=== PATIENT | male | born 1975 | race Caucasian/White ===

== ENCOUNTER 2018-03-02 16:42 | Emergency (ER) | payer SELFPAY ==
[~2018-03-02] VITALS: Ht 180.3 cm; Wt 82.0 kg
[2018-03-02 20:08] VITALS: BP 112/74
== END 2018-03-02 20:50 | disposition home or self-care (01) ==
LOC: ED 19:10 → EDBD 19:10 → ED 20:50
DX: F10.120 Alcohol abuse with intoxication, uncomplicated (principal)
CPT/HCPCS: 36415; 80307; 99283

== ENCOUNTER 2018-03-03 15:16 | Emergency (ER) | payer SELFPAY ==
[~2018-03-03] VITALS: Ht 182.9 cm; Wt 79.0 kg
[2018-03-03 20:04] VITALS: BP 102/71
== END 2018-03-03 20:17 | disposition home or self-care (01) ==
LOC: ED 16:34
DX: F10.120 Alcohol abuse with intoxication, uncomplicated (principal)
CPT/HCPCS: 99283

== ENCOUNTER 2018-03-04 11:59 | Emergency (ER) | payer SELFPAY ==
[~2018-03-04] VITALS: Ht 177.8 cm; Wt 80.0 kg
[2018-03-04 19:45] VITALS: BP 118/74
== END 2018-03-04 19:55 | disposition home or self-care (01) ==
LOC: ED 15:04
DX: F10.229 Alcohol dependence with intoxication, unspecified (principal); F17.210 Nicotine dependence, cigarettes, uncomplicated; Y90.9 Presence of alcohol in blood, level not specified
CPT/HCPCS: 99283

== ENCOUNTER 2018-07-01 20:36 | Emergency (ER) | payer SELFPAY ==
[~2018-07-01] VITALS: Ht 180.3 cm; Wt 81.0 kg
--- NOTE | 2018-07-01 20:54 | NUR ---
pt RESTING IN BED. UNABLE TO GET BREATHYLIZER ON PT. MACHINE FLASHES, E31 CODE. PT CALM AT THIS TIME. WILL CONTINUE TO MONITOR.
--- NOTE | 2018-07-01 21:13 | NUR ---
PT DESATING TO 82% ON RA. PT PLACE DON 3L O2 PER N/C . PT REPOSITIONED IN BED.
--- NOTE | 2018-07-01 22:36 | NUR ---
PT TRYING TO STAND UP TO VOID IN URINAL. PT SPILLING URINE ALL OVER FLOOR. PT ASSISTED WITH VOID IN URINAL. PT PLACED BACK IN RNEY, FLOOR CLEANED. BILAT BEDRAILS UP.
--- NOTE | 2018-07-01 23:11 | NUR ---
PT RESTING CALMLY IN BED. BILAT BEDRAILS UP. WILL CONTINUE TO MONITOR.
--- NOTE | 2018-07-02 | NUR ---
PT RESTING CALMLY IN BED WITH EYES CLOSED. PT ON VITALS MONITORS. WILL CONTINUE TO MONITOR. BILAT BEDRAILS UP.
--- NOTE | 2018-07-02 01:14 | NUR ---
PT RESTING CALMLY IN BED WITH EYES CLOSED. NO DISTRESS NOTED AT THIS TIME. WILL CONTINUE TO MONITOR.
[2018-07-02 02:17] VITALS: BP 109/75
--- NOTE | 2018-07-02 02:17 | NUR ---
PT ABLE TO AMBULATE STEADILY IN HALLWAY. PT ACCEPTED [facility] TO CARE HOME. PT A&OX4. PT SATING 93% ON RA. VSS. PT ABLE TO DRESS HIMSELF.
== END 2018-07-02 02:19 | disposition home or self-care (01) ==
LOC: ED 21:16
DX: F10.120 Alcohol abuse with intoxication, uncomplicated (principal)
CPT/HCPCS: 99283

== ENCOUNTER 2018-07-05 18:12 | Emergency (ER) | payer SELFPAY ==
[~2018-07-05] VITALS: Ht 180.3 cm; Wt 81.8 kg
--- NOTE | 2018-07-05 19:17 | NUR ---
Provided bedside report to NICK Novoa. All questions answered. NICK Novoa to assume care of pt.
[2018-07-05 19:52] LABS: PH, VENOUS 7.515 pH (7.320-7.420)
[2018-07-05 19:56] LABS: BASOPHILS % (AUTO) 0 % (0-1); EOSINOPHILS # (AUTO) 0.03 x10^3/uL (0-0.4); EOSINOPHILS % (AUTO) 0 % (1-7); LYMPHOCYTES # (AUTO) 0.52 x10^3/uL (1-3.4); LYMPHOCYTES % (AUTO) 8 % (22-44); MD NO; MEAN CORPUSCULAR HEMOGLOBIN 30.6 pg (27.5-34.5); MEAN CORPUSCULAR HGB CONC 34.4 g/dL (33.2-36.2); MEAN PLATELET VOLUME 6.4 fL (7.4-10.4); MONOCYTES # (AUTO) 0.38 x10^3/uL (0.2-0.8); MONOCYTES % (AUTO) 6 % (2-9); NEUTROPHILS # (AUTO) 5.94 x10^3/uL (1.8-6.8); NEUTROPHILS % (AUTO) 87 % (42-75); PLATELET COUNT 100 x10^3/uL (130-400); RED BLOOD COUNT 5.27 x10^6/uL (4.38-5.82); RED CELL DISTRIBUTION WIDTH 14.2 % (9.4-14.8)
[2018-07-05] MEDS ORDERED: SODIUM CHLORIDE FLUSH 10ML SYR IVF ONE (20:00)
[2018-07-05] MEDS ORDERED: SODIUM CHLORIDE 0.9% 1,000ML IVBOLUS ONE (20:00)
[2018-07-05 20:04] LABS: ACETONE, SERUM Negative (Negative); ALANINE AMINOTRANSFERASE 41 U/L (12-78); ALBUMIN 3.8 g/dL (3.4-5.0); CALCIUM 9.4 mg/dL (8.5-10.1); CHLORIDE 102 mmol/L (98-107); CREATININE 1.03 mg/dL (0.7-1.3)
[2018-07-05 20:07] LABS: ALKALINE PHOSPHATASE 73 U/L (45-117); ANION GAP 9 mmol/L (5-15); BILIRUBIN,TOTAL 1.1 mg/dL (0.2-1.0); TOTAL PROTEIN 7.3 g/dL (6.4-8.2)
--- NOTE | 2018-07-05 20:15 | NUR ---
IV ACCESS OBTAINED, NS BOLUS STARTED. NO DISTRESS NOTED, CALL LIGHT IN REACH
--- NOTE | 2018-07-05 21:51 | NUR ---
PT WATCHING TV, NO DISTRESS OR SIGNS OF SEIZURES NOTED
[2018-07-05 21:52] VITALS: BP 132/93
== END 2018-07-05 22:47 | disposition home or self-care (01) ==
LOC: ED 20:19
DX: F10.239 Alcohol dependence with withdrawal, unspecified (principal); R56.9 Unspecified convulsions; D69.6 Thrombocytopenia, unspecified; Y90.9 Presence of alcohol in blood, level not specified
CPT/HCPCS: 36415; 70450; 80053; 82010; 82803; 83690; 85025; 93005; 99284; J7030

== ENCOUNTER 2018-09-27 16:57 | Emergency (ER) | payer MEDICAID ==
[~2018-09-27] VITALS: Ht 177.8 cm; Wt 80.0 kg
--- NOTE | 2018-09-27 17:09 | NUR ---
PT RESPONDING TO PAINFUL STIMULUS ONLY. APPARENT ETOH.
--- NOTE | 2018-09-27 17:58 | NUR ---
REMAINS OBTUNDED, BREATHING EVEN AND UNLABORED. CONTINUE TO MONITOR
--- NOTE | 2018-09-27 18:52 | NUR ---
REMAINS OBTUNDED, BREATHING EVEN AND UNLABORED
--- NOTE | 2018-09-27 19:00 | NUR ---
RECEIVED BS REPORT FROM NICK BARRIENTOS TO ASSUME CARE OF PT. PT. RESTING ON GURNEY WITH EYES CLOSED. CONTINUOUS PULSE OX, B/P, AND HEART MONITORS IN PLACE. CALL LIGHT IN REACH. ALL SAFETY MEASURES OBSERVED. EVEN, NON-LABORED RESPIRATIONS VISIBLE.
--- NOTE | 2018-09-27 19:57 | NUR ---
PT. CONTINUES RESTING ON GURNEY WITH EYES CLOSED. NADN. RESP EVEN AND NON-LABORED. ALL MONITORS REMAIN IN PLACE. ALL SAFETY MEASURES MAINTAINED.
--- NOTE | 2018-09-27 22:10 | NUR ---
BREAK RN: PT ASLEEP IN [place], VSS, NAD, FALL PRECAUTIONS IN PLACE.
--- NOTE | 2018-09-27 22:25 | NUR ---
REPORT BACK FROM BREAK RN TO REASSUME PT. CARE.
--- NOTE | 2018-09-27 23:20 | NUR ---
PT. CONTINUES RESTING ON GURNEY WITH EVEN, NON-LABORED RESPIRATIONS. ALL SAFETY MEASURES MAINTAINED.
--- NOTE | 2018-09-28 02:05 | NUR ---
PT. NOW AWAKE AND STATING HE IS READY TO LEAVE. PT. ABLE TO AMBULATE WITH STEADY GAIT. PT. ABLE TO FULLY DRESS SELF.
[2018-09-28 02:06] VITALS: BP 115/73
== END 2018-09-28 02:06 | disposition home or self-care (01) ==
LOC: ED 09-28 01:50 → MERGE 09-28 01:50 → ED 09-28 02:06
DX: F10.221 Alcohol dependence with intoxication delirium (principal)
CPT/HCPCS: 36415; 80307; 99283